=== PATIENT | male | born 1960 | race Two or more races ===

== ENCOUNTER 2016-10-02 15:41 | Emergency (ER) | payer MEDICAID ==
[~2016-10-02] VITALS: Ht 172.7 cm; Wt 103.0 kg
[2016-10-02] MEDS ORDERED: SODIUM CHLORIDE 0.9% 1,000 ML IV ONE ×2 (15:53)
[2016-10-02] MEDS ORDERED: PIPERACILLIN/TAZ 3.375G PREMIX 50 ML IV ONE (16:00)
[2016-10-02] MEDS ORDERED: TETANUS, DIPHTHERIA, PERTUSSIS VAC/PF 0.5ML (>7YR OLD) IM ONE (16:00)
[2016-10-02 16:01] LABS: EOSINOPHILS % 6.2 % (0.0-5.0); HEMATOCRIT. 45.9 % (42.0-52.0); HEMOGLOBIN. 15.9 g/dL (14.0-18.0); LYMPHOCYTES % 38.9 % (20.0-50.0); MEAN CORPUSCULAR HEMOGLOBIN 30.7 pg (28.0-32.0); MEAN CORPUSCULAR VOLUME 88.7 fL (80.0-94.0); MEAN PLATELET VOLUME 8.5 fl (7.4-10.4); MONOCYTES % 7.8 % (2.0-8.0); NEUTROPHILS % 46.1 % (40.0-76.0); PLATELET 240 x1000/uL (130-400); RED BLOOD CELL COUNT 5.17 mill/uL (4.7-6.1)
[2016-10-02 16:06] LABS: INR 1.1; PARTIAL THROMBOPLASTIN TIME 34.9 sec (24.0-34.0); PROTHROMBIN TIME 11.1 sec
[2016-10-02 16:13] VITALS: BP 160/86
[2016-10-02 16:14] LABS: CARBON DIOXIDE 26 mEq/L (21-32); CHLORIDE 106 mEq/L (98-107); ETHANOL BLOOD < 10 mg/dL; TROPONIN I < 0.02 ng/mL (0.00-0.04)
== END 2016-10-02 16:53 | disposition short-term general hospital (02) ==
LOC: ER 15:57
DX: S31.139A Puncture wound of abdominal wall without foreign body, unspecified quadrant without penetration into peritoneal cavity, initial encounter (principal); F12.10 Cannabis abuse, uncomplicated; E11.9 Type 2 diabetes mellitus without complications; W34.00XA Accidental discharge from unspecified firearms or gun, initial encounter; Y93.89 Activity, other specified; Y99.8 Other external cause status; Y92.89 Other specified places as the place of occurrence of the external cause
CPT/HCPCS: 36415; 36430; 71010; 74000; 76705; 80053; 83690; 83880; 84484; 85025; 85610; 85730; 86850; 86900; 86901; 90471; 90715; 96365; 99291; G0482; J2543; J7030